=== PATIENT | female | born 2000 | race African-American/Black ===

== ENCOUNTER 2020-06-25 14:39 | Emergency (ER) | payer OTHER, MEDICAID ==
[~2020-06-25] VITALS: Ht 162.6 cm; Wt 68.1 kg
[2020-06-25 15:58] VITALS: BP 112/59
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
[2020-06-25] MEDS ORDERED: NAPR-514 PO (16:21)
[2020-06-25] MEDS ORDERED: CYCL10TA2 PO (16:21)
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
== END 2020-06-25 16:47 | disposition home or self-care (01) ==
LOC: ER 14:39
DX: G89.11 Acute pain due to trauma (principal); M54.2 Cervicalgia; Z91.013 Allergy to seafood; V98.8XXA Other specified transport accidents, initial encounter; Y93.89 Activity, other specified; Y92.413 State road as the place of occurrence of the external cause; Y99.8 Other external cause status
CPT/HCPCS: 72125; 81025; 99284

== ENCOUNTER 2020-06-27 16:30 | Emergency (ER) | payer MEDICAID, OTHER ==
[~2020-06-27] VITALS: Ht 162.6 cm; Wt 68.0 kg
[~2020-06-27 16:30] MED LIST: CYCL10TA2 PO; NAPR-514 PO
[2020-06-27 17:02] VITALS: BP 130/78
== END 2020-06-27 17:45 | disposition left against medical advice (07) ==
LOC: ER 16:30
DX: R25.2 Cramp and spasm (principal); Z53.21 Procedure and treatment not carried out due to patient leaving prior to being seen by health care provider